=== PATIENT | male | born 1980 | race Two or more races ===

== ENCOUNTER 2020-11-28 11:16 | Emergency (ER) | payer OTHER ==
[~2020-11-28] VITALS: Ht 154.9 cm; Wt 81.6 kg
[2020-11-28] MEDS ORDERED: ORPHENADRINE C100 MG PO (16:50)
[2020-11-28] MEDS ORDERED: KETO10TA2 PO (16:50)
[2020-11-28] MEDS ORDERED: MEDROLPACK PO (16:50)
== END 2020-11-28 17:21 | disposition home or self-care (01) ==
LOC: ER 11:16
DX: G89.11 Acute pain due to trauma (principal); M25.552 Pain in left hip; S73.192S Other sprain of left hip, sequela; X50.0XXS Overexertion from strenuous movement or load, sequela